=== PATIENT | female | born 1945 | race Caucasian/White ===

== ENCOUNTER 2016-12-22 06:03 | Day surgery (SDC) | payer MEDICARE, BC ==
[~2016-12-22] VITALS: Ht 152.4 cm; Wt 72.6 kg
--- NOTE | ~2016-12-22 | OR ---
PATIENT'S NAME: FELISHA HESTER [facility] AGE: 71 Y [address] ROOM: [place] [address] LOCATION: [facility] [place] ADMIT DATE: 12/22/2016 OR/Procedure Report DISCHARGE DATE: 12/23/2016 FAMILY PHYSICIAN: Madelyn Polanco MD ATTENDING PHYSICIAN: Uziel Heaton SURGEON: Uziel Heaton MD FRONT END DEVELOPER: Trev Siegel PA-C. DATE OF PROCEDURE: 12/22/2016 REFERRING PHYSICIAN: Madelyn Polanco MD in [place]. PREOPERATIVE DIAGNOSES: 1. Left breast infiltrating ductal carcinoma. 2. Desired bilateral mastectomy with immediate plastic surgery reconstruction. POSTOPERATIVE DIAGNOSES: 1. Infiltrating ductal carcinoma of left breast. 2. 11/22 left axillary sentinel lymph nodes positive for metastatic disease. PROCEDURES: 1. Bilateral periareolar 5 mL Lymphazurin blue dye injection for intra- subdermal injection for lymphoscintigraphy. 2. Right axillary sentinel lymph node biopsy. 3. Right simple mastectomy. 4. Left modified radical mastectomy. ANESTHESIA: General. ESTIMATED BLOOD LOSS: 150 mL. SPECIMEN: Right axillary lymph node with right breast tissue, left mastectomy with axillary dissection contents. INDICATION: The patient is a pleasant 71-year-old young lady referred by Dr. Polanco for surgical treatment of infiltrating ductal carcinoma of the left breast noted on incisional biopsy. It was at least 2.8 cm tumor. She had some possible adenopathy of the left axilla. She has undergone evaluation as well as Plastic surgery evaluation. She elected to go bilateral mastectomy with immediate reconstruction. DESCRIPTION OF PROCEDURE: After informed consent, the patient was taken to the operating room. After general endotracheal anesthesia, the patient's anterior right chest, breast, and axilla were prepped and draped into a sterile field. We preoperatively had nuclear technetium labeled sulfur PATIENT'S NAME: FELISHA HESTER [facility] AGE: 71 Y [address] ROOM: [place] [address] LOCATION: [facility] [place] ADMIT DATE: 12/22/2016 OR/Procedure Report DISCHARGE DATE: 12/23/2016 FAMILY PHYSICIAN: Madelyn Polanco MD ATTENDING PHYSICIAN: Uziel Heaton colloid injection for lymphoscintigraphy bilaterally as well as with blue dye. We began on the right side. We used Dr. Emmanuel's preoperatively marked lines of incision, created superior skin flap up to the right infraclavicular region. We then dissected the breast tissue away from the subcutaneous tissue all way to the lower left right axilla. We identified a blue lymphatic channel going to a clearly small blue lymph node. It was excised. It was sent for final pathology. We then did our inferior skin flap, the breast tissue from subcutaneous tissue, down to the inframammary fold. We took the breast off the pectoralis fascia, beginning medially and progressed laterally. Once the breast was removed, we cauterized for hemostasis, placed a saline moistened sponge underneath the skin flaps and turned over to Dr. Emmanuel who dictated separately. Next, we turned our attention toward the left mastectomy site, we made our superior skin incision as preoperatively marked per Dr. Emmanuel. We dissected the subcutaneous tissue from the breast tissue out to the infraclavicular region. We went down into the lower left axilla, identified a radioactive hot blue lymph node cluster. We excised it and sent down for touch prep and 4/10 lymph nodes came back in this cluster positive for metastatic disease. Therefore, we proceeded with a left axillary dissection. We identified the pectoralis major and minor muscles, border of the lateral latissimus border in the axillary vein. We identified the long thoracic and thoracodorsal nerve bundles. We removed gross adenopathy from this region and cleaned out the lower level two lymph nodes. We then created our inferior left breast flap down to the inframammary fold. We took the breast off the pectoralis fascia and excised along with the axillary content. We then inspected the axilla, it was hemostatic. We left a Kaleb-Schofield drain in the lower left axilla for postop drainage. Dr. Emmanuel then proceeded with wound closure. The patient tolerated the procedure well and transferred to recovery room in stable condition. MD REGI ROGERS/blaine /[id number] d: 01/06/17 170 t: 01/26/17 1733, OPERATIVE SUMMARY
--- NOTE | ~2016-12-22 | OR ---
PATIENT'S NAME: FELISHA HESTER [facility] AGE: 71 Y [address] ROOM: [address] [address] [place] [facility] [place]: 12/22/2016 OR/Procedure Report DISCHARGE DATE: FAMILY PHYSICIAN: Madelyn Polanco MD ATTENDING PHYSICIAN: Uziel Heaton SURGEON: Luis Emmanuel MD [facility] NURSE: DATE OF PROCEDURE: 12/22/2016 PREOPERATIVE DIAGNOSIS: Left breast cancer with desire for reconstruction. POSTOPERATIVE DIAGNOSIS: Left breast cancer with desire for reconstruction. PROCEDURE PERFORMED: 1. Placement of bilateral tissue expanders. 2. Placement of AlloDerm, left chest, 164 sq cm. INDICATION FOR THE PATIENT: The patient is a 71-year-old female with a diagnosis of left-sided breast cancer. The patient is scheduled to undergo bilateral mastectomies and desires reconstruction. Dr. Heaton will perform the mastectomies and will dictate that portion of the procedure. DESCRIPTION OF PROCEDURE: The patient underwent preoperative markings. She was brought to the operating room, placed supine, and general anesthesia was administered. The patient's chest was prepped and draped in a sterile fashion. Dr. Heaton then performed the mastectomies with the left being a modified radical mastectomy and the right a simple mastectomy. After the mastectomies were completed, submuscular pockets were created. The anterior border of the serratus muscle was elevated off the lateral chest wall and the pectoralis muscle was elevated off the anterior chest wall. The inferior fibers of the pectoralis muscle were divided. On the right, this muscle was sutured to the undersurface of the superior mastectomy skin flap with 3-0 Vicryl suture. On the left, the patient ended up having positive lymph nodes. Due to the potential of future radiation, AlloDerm was placed into the left implant pocket to hopefully decrease the chance of postoperative capsular contractures. This AlloDerm was rinsed on the back table in a Betadine saline solution and placed into the pocket securing it to the inframammary crease, pectoralis major inferior border, as well as the anterior border of the serratus muscle with 3-0 Vicryl suture. After the AlloDerm placement was completed, the pockets were irrigated with a double antibiotic solution as well as a Betadine saline solution. 550 mL tissue expanders were prepared on the back table and rinsed in the antibiotic solution. The implants were placed and using their suture tabs, secured to PATIENT'S NAME: FELISHA HESTER [facility] AGE: 71 Y [address] ROOM: [address] [address] [place] [facility] [place]: 12/22/2016 OR/Procedure Report DISCHARGE DATE: FAMILY PHYSICIAN: Madelyn Polanco MD ATTENDING PHYSICIAN: Uziel Heaton the chest wall with 2-0 Prolene suture. The skin closure was completed over the right implant with 3-0 Vicryl and a running subcuticular suture of 4-0 Monocryl. The AlloDerm coverage was completed over the implant and the closure was also performed with 3-0 Vicryl and 4-0 Monocryl. Transcutaneously, 300 mL of fluid were added to each implant. The incisions were reinforced with Dermabond. Sterile dressings were applied. The patient was awakened and returned to recovery in stable condition. Estimated blood loss less than 25 mL for this portion of the procedure. MD JAIDEN GRAYSON/modl /[id number] d: 12/22/16 1746 t: 12/23/16 1310, OPERATIVE SUMMARY
[~2016-12-22 06:03] MED LIST: CALCIUM PO; DITROPAN5 MG PO; MULTIVITAMIN PO; VITAMIN D3400 UNIT PO
[2016-12-22 07:34] LABS: BASOPHIL # 0.1 K/uL (0.0-0.2); BASOPHIL % 1.3 %; EOSINOPHIL # 0.1 K/uL (0.0-0.5); HEMATOCRIT 37.6 % (33.0-46.0); HEMOGLOBIN 12.8 g/dL (10.0-15.0); IMMATURE GRANULOCYTE % 0.4 %; LYMPHOCYTE # 1.9 K/uL (0.8-4.0); LYMPHOCYTE % 34.9 %; MCH 29.6 pg (27.0-34.0); MCV 86.8 fl (83.0-98.0); MONOCYTE # 0.5 K/uL (0.0-1.0); MONOCYTE % 8.4 %; MPV 9.8 fl (9.4-12.4); NEUTROPHIL # (ANC) 2.9 K/uL (1.8-7.8); NRBC % 0 /100WBC (0-0.00); PLATELET COUNT 214 K/uL (150-450); RBC 4.33 M/uL (3.50-5.50); RDW-CV 12.7 % (11.9-14.6); WBC 5.5 K/uL (4.0-11.0)
[2016-12-22 07:46] LABS: ALBUMIN 3.5 gm/dL (3.5-5.0); ALK PHOS 55 IU/L (33-138); ALT 32 IU/L (12-78); ANION GAP 12.7 (10.0-19.0); AST 20 IU/L (10-40); BLOOD UREA NITROGEN 16 mg/dL (6-24); CALCIUM 8.6 mg/dL (8.5-10.5); CHLORIDE 113 mMol/L (96-110); CO2 24 mMol/L (22-32); CREATININE 0.8 mg/dL (0.5-1.1); ESTIMATED GFR (MDRD EQUATION) > 60; POTASSIUM 3.7 mMol/L (3.7-5.1); TOTAL BILIRUBIN 0.3 mg/dL (0.0-1.5); TOTAL PROTEIN 6.8 g/dL (6.0-8.4)
[2016-12-22 07:48] LABS: SODIUM 146 mMol/L (135-145)
--- NOTE | 2016-12-22 16:09 | NUR ---
SPOKE TO PATIENT REGARDING CM AND OUR ROLE. PATIENT LIVES IN OWN HOME WITH SPOUSE AND IS PLANNING ON RETURNING HOME ONCE SHE IS READY FOR DISCHARGE. PATIENT DOES NOT ANTICIPATE ANY DISCHARGE NEEDS AT THIS TIME. CM WILL CONT TO FOLLOW NEEDED.
--- NOTE | 2016-12-22 16:49 | NUR ---
Significant event: Patient is alert and oriented x3. VSS. Currently on 1.5liters of O2/NC. Morphine given at 1346. Percocet 2 tabs last given at 1640. Patient on clear liquid diet, advance as tolerated. Ambulated to bathroom with one assist. Had a bilateral mastectomy, right simple and left modified radical. Blood pressure is being taken on the lower right leg. Dressings to bilateral chest are clean dry intact. GET x2 to left chest and x1 to right chest. Family at bedside. Cooperative with cares.
--- NOTE | 2016-12-23 05:11 | NUR ---
PATIENT IS ALERT AND ORIENTATED X3. AMBULATES WITH 1 ASSIST, DOES HAVE SOME VERTIGO AT TIMES. VS WNL ON 1 L O2. BLOOD PRESSURES TAKEN IN LEFT LEG DUE TO DOUBLE MASTECTOMY. IV TO R HAND RUNNING AT 130 ML/HR. HAS 3 GET DRAINS ONE TO THE R SIDE AND 2 TO THE L SIDE. PEROCET LAST DOSE 2 TABS GIVEN AT 0320. DRESSING AND SUGRICAL BRA AT BEDSIDE. HEAD TO BE ELEVATED AND KNEES FLEXED. NO ICE TO CHEST. COOPERATIVE WITH CARES.
--- NOTE | 2016-12-23 09:50 | NUR ---
Met with patient. Introduced self and role of nurse navigator. Discussed recovery from mastectomy including what symptoms to report to physician. Also discussed drains and tracking drainage from drains and taking the log with her to follow up appointment. Patient education handouts given on nurse navigation, breast cancer, cancer rehab, and lymphedema. Patient states her daughter will be staying with her during her recovery period so she will have assistance at home. Patient is interested in cancer rehab especially for education on lyphedema. I told her it would be up to her physician when it would be appropriate to begin. Instructions given on protecting left arm with no blood pressures, needle sticks or IV starts in left arm. Pillow placed under left arm and instructed patient to keep left arm elevated when sitting. Explained rationale. Asked patient if her physician had mentioned a port. Patient states Dr. Heaton did mention that she would benefit from having a port placed. Discussed what a port is and what it would be used for. Talked with patient's nurse Tierney, she will be providing instructions on emptying GET drains when patient's daughter arrives. I also mentioned to Tierney that patient needs limb alert bracelet at least on left arm where lymph glands were removed as I am unable to get into supply room to get a bracelet. She retreives the bracelets and will apply. Will follow.
[2016-12-23] MEDS ORDERED: PERCOCET 5-3251 EACH PO (10:15)
[2016-12-23] MEDS ORDERED: BACTRIM DS1 TAB PO (13:25)
--- NOTE | 2016-12-23 13:30 | NUR ---
D: Orders received for the patient to be discharged to home today with 3 GET drains. I: Dismissal instructions were prepared and reviewed with the patient, her daughter and her . The following information was discussed including [employer] teaching sheets provided: Kaleb Schofield drainage tube discharge instructions, mastectomy, mastectomy-follow up care, what is a sentinel lymph node breast biopsy, Percocet, Bactrim DS and preventing DVT. Reviewed follow up appointments on the same day 01/03/17 and new prescription they will need to take to the pharmacey of there choice. R: The patient, her and her daughter all verbalized understanding of the dismissal education at the time of teaching with no further questions. P: The above information was shared with the primary nurse and the charge nurse that the dismissal education was completed. The patient is ready for discharge to the front door via wheel chair by nursing staff.
--- NOTE | 2016-12-29 11:00 | NUR ---
Post discharge phone call made. Patient states incisions are healing well. Still has GET drains. Less drainage from these. Having no trouble emptying drains. Daughter is staying with her to assist. She is having trouble with constipation. Pharmacist recommedmed stool softener and she had taken that last few days and did have small BM yesterday. She also noticed that her right calf is tender. Denies swelling, redness, or warmth in the area of tenderness. She has reported this to her physician and the nurse is supposed to call back today. No other questions. Is aware of follow up appointments on TuesdayJanuary 03.
[2017-01-17] MEDS ORDERED: Z-SLEEP25 MG PO (10:47)
[2017-01-17] MEDS ORDERED: PRILOSEC20 MG PO (10:55)
[2017-01-17] MEDS ORDERED: PAIN RELIEVER500 MG PO (10:56)
[2017-01-24] MEDS ORDERED: BACTRIM DS1 TAB PO (06:34)
[2017-01-24] MEDS ORDERED: DOXYCYCLINE100 MG PO (06:35)
== END 2016-12-23 15:00 | disposition disaster alternative care site (69) ==
LOC: GMSU 06:03 → UNDOADMIN 06:03 → GSDC 06:03 → EDSTATUS 09:00 → GMSU 12:46 → GSDC 12-23 15:00
PROVIDERS: Surgery
PROC: 0HHV0NZ Insertion of Tissue Expander into Bilateral Breast, Open Approach (ICD-10-PCS; principal; 2016-12-22)
PROC: 0HUU0JZ Supplement Left Breast with Synthetic Substitute, Open Approach (ICD-10-PCS; 2016-12-22)
DX: C50.112 Malignant neoplasm of central portion of left female breast (principal); D24.1 Benign neoplasm of right breast; C77.3 Secondary and unspecified malignant neoplasm of axilla and upper limb lymph nodes; K21.9 Gastro-esophageal reflux disease without esophagitis; Z88.0 Allergy status to penicillin; Z90.49 Acquired absence of other specified parts of digestive tract; Z98.890 Other specified postprocedural states
CPT/HCPCS: A9520; C1789; J1100; J1580; J1956; J2270; J2405; J3010; J3480; J7030; J7120; Q4116; Q9968

== ENCOUNTER → 2017-01-24 | Day surgery (SDC) | payer MEDICARE, BC ==
[~2017-01-24] VITALS: Ht 152.4 cm; Wt 70.5 kg
[~2017-01-24] MED LIST changes: +BACTRIM DS1 TAB PO; +DOXYCYCLINE100 MG PO; +PAIN RELIEVER500 MG PO; +PERCOCET 5-3251 EACH PO; +PRILOSEC20 MG PO; +Z-SLEEP25 MG PO
--- NOTE | 2017-01-24 07:25 | NUR ---
THE PATIENT VISITED WITH DR. CARPENTER AND HE DID NOTE HER RT BREAST INCISION THE SURGERY FOR PORT PLACEMENT CANCELLED AND SHE WILL FOLLOW UP WITH HER PHYSICIAN TOMORROW. DISMISSED WITH HER DAUGHTER IN LAW AND BOTH VOICED UNDERSTANDING.
== END ==
LOC: GSDC 01-17 11:00 → GPOC 01-17 11:00 → GSDC 06:12
DX: C50.512 Malignant neoplasm of lower-outer quadrant of left female breast (principal); Z53.9 Procedure and treatment not carried out, unspecified reason; Z88.0 Allergy status to penicillin; Z79.899 Other long term (current) drug therapy; Z79.2 Long term (current) use of antibiotics
CPT/HCPCS: J1100; J1642; J1956; J2001; J2250; J2405; J7030